=== PATIENT | male | born 1945 | race Caucasian/White ===

== ENCOUNTER 2020-01-14 | Emergency (ER) | payer MEDICARE ==
[2020-01-14] MEDS ORDERED: ELIQUIS5 MG PO (15:53)
[2020-01-14] MEDS ORDERED: TAMSULOSIN HCL0.4 MG PO (15:54)
[2020-01-14] MEDS ORDERED: AMIODARONE HCL200 MG PO (15:54)
[2020-01-14] MEDS ORDERED: FINASTERIDE5 MG PO (15:54)
[2020-01-14] MEDS ORDERED: LISINOPRIL20 M1 PO (15:54)
[2020-01-14] MEDS ORDERED: PANTOPRAZOLE SO40 M1 PO (15:55)
== END 2020-01-14 17:05 | disposition home or self-care (01) ==
PROC: 0HQGXZZ Repair Left Hand Skin, External Approach (ICD-10-PCS; principal; 2020-01-14)
DX: S61.211A Laceration without foreign body of left index finger without damage to nail, initial encounter (principal); I10 Essential (primary) hypertension; I48.91 Unspecified atrial fibrillation; W26.0XXA Contact with knife, initial encounter; Y93.G3 Activity, cooking and baking; Y92.000 Kitchen of unspecified non-institutional (private) residence as the place of occurrence of the external cause; Z79.01 Long term (current) use of anticoagulants